=== PATIENT | female | born 1955 | race African-American/Black ===

== ENCOUNTER 2017-03-04 11:52 | Emergency (ER) | payer OTHER ==
[2017-03-04] MEDS ORDERED: HYDROcodone/Acetaminophen 5/325 mg Tablet ONE (12:05)
[2017-03-04] MEDS ORDERED: Fentanyl 100 MCG/2 ML VIAL ONE (12:31)
--- NOTE | 2017-03-04 14:54 | RAD ---
LEFT WRIST THREE VIEWS HISTORY: Accidental trip and fall. Deformity. Evaluate for fracture/dislocation. COMPARISON: None. FINDINGS: There is a comminuted intraarticular fracture of the distal radius with impaction, dorsal angulation of approximately 30, and extensive comminution. The scaphoid appears to be intact. There is an ossicle of the triangular fibrocartilage. No ulnar styloid fracture is appreciated, although limited. IMPRESSION: Comminuted, impacted, and 30 dorsally angulated distal radius intraarticular fracture. POS: [facility]
--- NOTE | 2017-03-04 15:14 | RAD ---
LEFT WRIST TWO VIEWS HISTORY: Fracture. Followup. COMPARISON: 03/04/2017 FINDINGS: Overlying fiberglass splint is now in place. There has been partial reduction of the dorsal tilt an d displacement of the distal radial fracture. The dorsal tilt is now estimated at 17. IMPRESSION: Interval splinting of the comminuted intraarticular distal left radial fracture, with a slight decre ase in the degree or dorsal tilt. POS: [facility]
--- NOTE | 2017-03-04 15:22 | RAD ---
LEFT WRIST TWO VIEWS 03/04/2017 1327 HOURS HISTORY: Wrist fracture, post reduction. FINDINGS: There has been further reduction of the dorsal angulation of the comminuted distal radial fracture. Dorsal angulation is now estimated at 8. Other findings are stable. POS: [facility]
--- NOTE | 2017-03-04 15:49 | RAD ---
LEFT WRIST TWO VIEWS 03/04/17 at 1342 hours HISTORY: Further reduction of the left wrist radial fracture alignment. FINDINGS/IMPRESSION: Mild dorsal tilt of the distal radial fragment of the comminuted fracture is again demonstrated on t he lateral view, estimated at 10%. Overlying fiberglass splint remains in place. Other findings are stable. POS: [facility]
== END 2017-03-04 14:15 | disposition home or self-care (01) ==
LOC: BURERS 11:52
DX: S52.502A Unspecified fracture of the lower end of left radius, initial encounter for closed fracture (principal); S52.602A Unspecified fracture of lower end of left ulna, initial encounter for closed fracture; I10 Essential (primary) hypertension; F41.9 Anxiety disorder, unspecified; W01.0XXA Fall on same level from slipping, tripping and stumbling without subsequent striking against object, initial encounter
CPT/HCPCS: 25600; 96374; 96375; J3010

== ENCOUNTER 2017-03-05 05:41 | Emergency (ER) | payer OTHER | END 2017-03-05 06:06 | disposition home or self-care (01) | LOC: BURERS 05:41 | DX: Z53.21 Procedure and treatment not carried out due to patient leaving prior to being seen by health care provider (principal) ==

== ENCOUNTER 2017-04-26 09:45 | Outpatient (CLI) | payer OTHER ==
[2017-04-26 10:27] LABS: #Basophils 0.1 thou/uL (0.0-0.2); #Lymphocytes 1.5 thou/uL (1.20-3.40); #Monocytes 0.4 thou/uL (0.11-0.59); #Neutrophils 3.4 thou/uL (1.40-6.50); %Basophils 1.1 % (0.0-1.0); %Lymphocytes 27.3 % (21.0-51.0); %Monocytes 7.3 % (0.0-10.0); %Neutrophils 64.3 % (42.0-75.0); Hemoglobin 14.4 g/dL (12.0-16.0); Mean Corpuscular HGB CONC 32.9 g/dL (32.0-36.0); Mean Corpuscular Hemoglobin 28.9 pg (27.0-31.0); Mean Platelet Volume 6.8 fL (7.4-10.4); Platelet Count 254 thou/uL (130-400); RBC Distribution Width 16.1 % (11.5-14.5); Red Blood Cell (RBC) Count 4.97 mill/uL (4.20-5.40); White Blood Cell (WBC) Count 5.3 thou/uL (4.8-10.8)
[2017-04-26 10:39] LABS: ALT (SGPT) 14 U/L (8-55); AST (SGOT) 15 U/L (5-34); Albumin 4.3 g/dL (3.4-4.8); Alkaline Phosphatase 71 U/L (40-150); Anion Gap 15 mmol/L (10-20); BUN (Urea Nitrogen) 15 mg/dL (9.8-20.1); Bilirubin, Total 0.5 mg/dL (0.2-1.2); Calc. Creatinine Clearance 0 mL/min (70-130); Calcium 9.6 mg/dL (7.8-10.44); Carbon Dioxide 23 mmol/L (23-31); Cardiac Risk 3.6 (Less than 4.5); Chloride 109 mmol/L (98-107); Cholesterol 182 mg/dl (< 200 Desired); Estimated GFR-MDRD 69; Globulin 3.7 g/dL (2.4-3.5); Glucose 88 mg/dL (80-115); HDL Cholesterol 50 mg/dL (>60 Neg Risk); LDL Cholesterol, Calculated 120 mg/dL; Potassium 4.3 mmol/L (3.5-5.1); Sodium 143 mmol/L (136-145); Triglycerides 58 mg/dL (Less than 150)
== END 2017-04-26 09:46 | disposition home or self-care (01) ==
LOC: HPCALD 09:45
PROVIDERS: ATTEND Family Medicine
DX: I10 Essential (primary) hypertension (principal)
CPT/HCPCS: 36415; 80053; 80061; 84443; 85025